=== PATIENT | male | born 1970 | race Caucasian/White ===

== ENCOUNTER 2018-05-31 01:29 | Inpatient (IN) | payer MEDICARE, MEDICAID ==
[~2018-05-31] VITALS: Ht 188 cm; Wt 113.9 kg
[2018-05-31] VITALS (24 sets, daily range): BP systolic 111–140; BP diastolic 70–97
[~2018-05-31 01:29] MED LIST: ASPIR 8181 MG PO; ASPIRIN EC81 M1 PO; ATIVAN1 M1 PO; AUGMENTIN 875-1 EACH PO; BACTROBAN CREAM30 G1; CARVEDILOL25 MG; CARVEDILOL25 MG PO; CELEXA20 MG PO; CRESTOR PO; CRESTOR10 MG PO; CYCLOBENZAPRINE5 MG PO; DOXYCYCLINE 10100 M1 PO; DOXYCYCLINE 10100 MG PO; GLUCOPHAGE1000 MG PO; GLUCOPHAGE500 MG PO; GLUCOTROL; GLUCOTROL10 MG PO; GLUCOTROL5 MG PO; HUMALOG100 UNIT/1; HUMALOG100 UNIT/1 SUBQ; HYDROCODONE-APA1 TA1 PO; JANUMET 50-1,01 EACH PO; KEFLEX500 MG PO; LANTUS SC; LANTUS SQ; LANTUS100 UNIT/M; LANTUS100 UNIT/M SUBQ; LASIX 40 MG TAB40 M2 PO; LEVAQUIN 500 M500 M2 PO; LEVITRA10 MG PO; LISINOPRIL PO; LISINOPRIL20 MG PO; LORTAB 7.5/5001 TA3 PO; METFORMIN PO; MUPIROCIN22 GM TOP; NOVOLOG100 UNIT/1 SQ; NOVOLOG100 UNIT/1 SUBQ; ONE TOUCH DELI1 EACH MC; OTHER MISCELL; PERCOCET 10-321 EAC1 PO; PERCOCET 5-3251 EACH PO; PLAVIX 75 MG TA75 M1 PO; POTASSIUM GLUC500 MG PO; PREDNISONE 10 M10 MG PO; SYMBICORT160 MCG/4. INH; UNICOMPLEX M TA1 TA1 PO
[2018-05-31] MEDS ORDERED: TOPROL XL25 MG (01:45)
[2018-05-31] MEDS ORDERED: MS CONTIN 30 MG30 MG (01:46)
[2018-05-31 02:09] LABS: ABSOLUTE EOSINOPHILS 0.3 thou/uL (0.0-0.7); ABSOLUTE LYMPHOCYTES 1.4 thou/uL (0.8-5.3); ABSOLUTE MONOCYTES 0.4 thou/uL (0.0-1.2); ABSOLUTE NEUTROPHILS 3.3 thou/uL (1.6-8.1); BASOPHILS 0.7 %; EOSINOPHILS 4.7 %; HEMATOCRIT 42.2 % (42.0-52.0); HEMOGLOBIN 13.6 gm/dL (14.0-18.0); LYMPHOCYTES 25.8 %; MCH 26.8 pg (26.0-34.0); MCHC 32.3 g/dL (28.0-37.0); MCV 83.1 fL (80.0-100.0); MONOCYTES 7.3 %; MPV 10.6 fl. (7.2-11.1); NUCLEATED RBCS 0 /100WBC; PLATELET COUNT* 129 thou/uL (150-400); POLYS 61.5 %; RBC 5.08 mil/uL (4.50-6.00); RDW-CV 14.4 % (10.5-14.5); WBC 5.4 thou/uL (4.0-11.0)
[2018-05-31 02:20] LABS: CALCIUM 8.4 mg/dL (8.5-10.1); CREATININE 1.1 mg/dL (0.6-1.3)
[2018-05-31 02:31] LABS: MAGNESIUM 1.8 mg/dL (1.8-2.4); TOTAL BILIRUBIN 0.4 mg/dL (<0.1-1.0); TOTAL PROTEIN 6.4 g/dL (6.4-8.2); TROPONIN-I LEVEL 0.08 ng/mL (<0.06)
[2018-05-31] MEDS ORDERED: NORCO 10-325 T1 EACH PO ×2 (04:34→04:37)
[2018-05-31] MEDS ORDERED: MS CONTIN 30 MG30 MG PO (04:38)
[2018-05-31 10:00] LABS: CALCIUM 8.2 mg/dL (8.5-10.1); CREATININE 1.1 mg/dL (0.6-1.3); POTASSIUM 3.9 mmol/L (3.5-5.1)
[2018-05-31 10:02] LABS: APTT 30.8 Seconds (25.0-31.3); INR 1.1; PROTIME 11.2 Seconds (9.20-11.50)
[2018-05-31 10:53] LABS: AMP/METHAMP Negative (Negative); BARBITURATES Negative (Negative); BENZODIAZEPINES Negative (Negative); COCAINE Negative (Negative); METHADONE Negative (Negative); OPIATES POSITIVE (Negative); PCP Negative (Negative); THC POSITIVE (Negative)
--- NOTE | 2018-05-31 12:16 | EKG ---
[place] [address] ELECTROCARDIOGRAM REPORT Name: DRAKE AMADOR Room: [address] ADM IN M.R.#: [id number] Admission: 05/31/18 Attend Phys: Christiano Ervin MD Discharge: Date of : 72 Report #: [id number] THIS REPORT FOR: //name// [facility] ED Test Date: 2018-05-31 Test Time: 01:37:37 Pat Name: DRAKE AMADOR Department: Room: [facility] Gender: M Butter Maker: GL : 1970 Requested By: Jessee Devlin Order Number: [id number] MD: Buddy Ribera Measurements Intervals [place] Rate: 88 P: 63 NV: 151 QRS: 57 QRSD: 106 T: 105 QT: 389 QTc: 471 Interpretive Statements Sinus rhythm Supraventricular bigeminy Probable left atrial enlargement Left ventricular hypertrophy Nonspecific T abnormalities, lateral leads Baseline wander in lead(s) V4 Compared to ECG 04/11/2015 11:49:17 Atrial premature complex(es) now present Left ventricular hypertrophy now present T-wave abnormality now present Electronically Signed On 05-31-2018 12:15:53 DRAFTING SUPERVISOR by Buddy Ribera [email or web address] <ELECTRONICALLY SIGNED> By: Buddy Ribera MD, FACC 05/31/18 1215 6 6 Buddy Ribera MD, FAC /EPI
--- NOTE | 2018-05-31 12:17 | EKG ---
[place] [address] ELECTROCARDIOGRAM REPORT Name: DRAKE AMADOR Room: [address] ADM IN M.R.#: [id number] Admission: 05/31/18 Attend Phys: Christiano Ervin MD Discharge: Date of : 72 Report #: [id number] THIS REPORT FOR: //name// [facility] ED Test Date: 2018-05-31 Test Time: 02:39:02 Pat Name: DRAKE AMADOR Department: Room: [address] Gender: M Interpretative Dancer: Dirk VILLA : 1970 Requested By: Jessee Devlin Order Number: [id number] Daniel MD: Buddy Ribera Measurements Intervals [place] Rate: 87 P: 10 MT: 145 QRS: 51 QRSD: 109 T: 111 QT: 386 QTc: 465 Interpretive Statements Sinus rhythm Atrial premature complexes Probable left ventricular hypertrophy Nonspecific T abnormalities, lateral leads Electronically Signed On 05-31-2018 12:16:53 MANAGER NIGHT by Buddy Ribera [email or web address] <ELECTRONICALLY SIGNED> By: Buddy Ribera MD, [facility] 05/31/18 1216 0239 0239 Buddy Ribera MD, FACC /EPI
[2018-06-01] VITALS (8 sets, daily range): BP systolic 118–134; BP diastolic 66–84
[2018-06-01 04:40] LABS: HEMATOCRIT 40.7 % (42.0-52.0); HEMOGLOBIN 13.3 gm/dL (14.0-18.0); MCH 27.1 pg (26.0-34.0); MCHC 32.7 g/dL (28.0-37.0); MCV 82.7 fL (80.0-100.0); MPV 10.5 fl. (7.2-11.1); RBC 4.92 mil/uL (4.50-6.00); RDW-CV 14.4 % (10.5-14.5); WBC 4.6 thou/uL (4.0-11.0)
[2018-06-01 05:10] LABS: ANION GAP 6 mmol/L (7-16); BUN 13 mg/dL (7-18); CALCIUM 8.3 mg/dL (8.5-10.1); CHLORIDE 104 mmol/L (98-107); CO2 31 mmol/L (21-32); CREATININE 1.2 mg/dL (0.6-1.3); GLUCOSE 112 mg/dL (70-99); POTASSIUM 3.8 mmol/L (3.5-5.1); SODIUM 141 mmol/L (136-145)
[2018-06-01 05:59] LABS: TROPONIN-I LEVEL 0.82 ng/mL (<0.06)
[2018-06-01 06:10] LABS: CHOLESTEROL 141 mg/dL (<200); HDL CHOLESTEROL 40 mg/dL (>40); LDL CHOLESTEROL 87 mg/dL (<100); SERUM ASSESSMENT CLEAR; TC:HDL 3.5 Ratio (Not establshd); TRIGLYCERIDE 72 mg/dL (<150); VLDL 14 mg/dL (<40)
--- NOTE | 2018-06-01 10:10 | EKG ---
[place] [address] ELECTROCARDIOGRAM REPORT Name: DRAKE AMADOR Room: [address] ADM IN M.R.#: [id number] Admission: 05/31/18 Attend Phys: Christiano Ervin MD Discharge: Date of : 72 Report #: [id number] THIS REPORT FOR: //name// [facility] Test Date: 2018-05-31 Test Time: 12:22:02 Pat Name: DRAKE AMADOR Department: Room: [address] Gender: M Cork Mixer: : 1970 Requested By: Buddy Ribera Order Number: [id number] Daniel MD: Buddy Ribera Measurements Intervals [place] Rate: 87 P: 70 NM: 147 QRS: 31 QRSD: 107 T: 110 QT: 388 QTc: 467 Interpretive Statements Sinus rhythm Atrial premature complexes Probable left ventricular hypertrophy Nonspecific T abnormalities, lateral leads Compared to ECG 05/31/2018 02:39:02 No significant changes Electronically Signed On 06-01-2018 10:10:06 MEDICAL STAFF COORDINATOR by Buddy Ribera [email or web address] <ELECTRONICALLY SIGNED> By: Buddy Ribera MD, [facility] 06/01/18 1010 1222 122 Buddy Ribera MD, [facility] /EPI
--- NOTE | 2018-06-01 10:20 | EKG ---
[place] [address] ELECTROCARDIOGRAM REPORT Name: DRAKE AMADOR Room: [address] ADM IN M.R.#: [id number] Admission: 05/31/18 Attend Phys: Christiano Ervin MD Discharge: Date of : 72 Report #: [id number] THIS REPORT FOR: //name// [facility] Test Date: 2018-06-01 Test Time: 03:42:38 Pat Name: DRAKE AMADOR Department: Room: [address] Gender: M Plastic Straightening Roll Operator: [facility] : 1970 Requested By: Buddy Ribera Order Number: [id number] Reading MD: Buddy Ribera Measurements Intervals [place] Rate: 82 P: 12 HI: 149 QRS: 34 QRSD: 104 T: 110 QT: 400 QTc: 468 Interpretive Statements Sinus rhythm Atrial premature complexes Probable left ventricular hypertrophy Abnormal inferior Q waves Nonspecific T abnormalities, lateral leads Compared to ECG 05/31/2018 02:39:02 T-wave abnormality still present Electronically Signed On 06-01-2018 10:20:50 SOLUTIONS CONSULTANT by Buddy Ribera [email or web address] <ELECTRONICALLY SIGNED> By: Buddy Ribera MD, [facility] 06/01/18 1020 0342 0342 Buddy Ribera MD, [facility] /EPI
[2018-06-01] MEDS ORDERED: PLAVIX 75 MG TA75 M1 PO (10:50)
[2018-06-01] MEDS ORDERED: NICOTINE TRANSD21 M1 TRANSDERM (10:53)
[2018-06-01] MEDS ORDERED: SPIRONOLACTONE25 M1 PO (10:55)
[2018-06-01] MEDS ORDERED: NITROGLYCERIN0.4 MG SUBLING (10:59)
[2018-06-01] MEDS ORDERED: LISINOPRIL20 MG PO (11:12)
[2018-06-01] MEDS ORDERED: CRESTOR10 MG PO ×2 (11:16→12:10)
[2018-06-01] MEDS ORDERED: TOPROL XL50 MG PO (12:10)
[2018-06-01] MEDS ORDERED: MS CONTIN 30 MG30 MG PO (12:12)
[2018-06-01] MEDS ORDERED: VENTOLIN HFA 1818 GM INH (12:17)
[2018-06-01] MEDS ORDERED: ATROVENT HFA14 GM INH (12:18)
[2018-06-01 23:06] LABS: GLYCOHEMOGLOBIN (HGB A1C) 7.1 % (4.8-5.6)
--- NOTE | 2018-06-03 15:08 | CARD ---
[address] [address] CARDIAC CATH REPORT Name: DRAKE AMADOR Room: [address]#: [id number] Admission: 05/31/18 Attend Phys: Christiano Ervin MD Discharge: 06/01/18 Date of : 72 Report #: [id number] THIS REPORT FOR: //name// APPROVED REPORT Study performed: 05/31/2018 10:33:29 Patient Details Patient Status: In-Patient Room #: The patient is a 48 year-old male Event Personnel Buddy Ribera, Aranza Alonso, Beny Spicer, Ang Watts Procedures Performed cath pci Indication Abnormal ECG, Unstable angina , Chest pain Risk Factors Coronary Artery Disease, Tobacco History () Previous Procedures/Diagnoses Previous CABGPrevious PCI Admission/Lab Medications/Medications given during procedure Glycoprotein IllbIlla Inhibitors, Heparin Unfract. Procedure Narrative The patient was brought electively to the Cardiac Catheterization Laboratory and was prepped and draped in a sterile manner. The right femoral was infiltrated with 1% Lidocaine subcutaneous anesthesia. A 6Fr Ultimum sheath was inserted into the right femoral artery. Coronary angiography was performed using coronary diagnostic catheters. The right coronary system was accessed and visualized with a Diagnostic catheter. The left coronary system was accessed and visualized with a Diagnostic catheter. The left ventricle was accessed and visualized with a Diagnostic catheter. Left ventricular/Aortic Valve gradient assessed via catheter pullback. Left ventriculogram was performed [facility] [address] [place] [address] CARDIAC CATH REPORT Name: DRAKE AMADOR Room: [address] IN [facility].#: [id number] Admission: 05/31/18 Attend Phys: Christiano Ervin MD Discharge: 06/01/18 Date of : 72 Report #: [id number] in WARD projection. An aortogram of the ascending aorta was performed. Pre-demployment femoral angiogram was performed . Closure device was deployed with a 6 Fr Angioseal. The patient tolerated the procedure well and there were no complications associated with the procedure. There was no hematoma. Aortic root injection showed no additional bypass grafts nor insufficiency. Intraoperative Conscious Sedation Fentanyl 25.0 mcg No Versed Given Fluoro Time: 9.1 minutes Dose: DAP [id number] cGycm2 2552 mGy Coronary Angiography The patient's coronary anatomy is co- dominant. [place] Artery Percent Stenosis AHZEL to lad visualized with a HAZEL catheter. HAZEL patent without stenosis. Patent free radial graft to the diagonal and sequential jump graft to the marginal branch visualized with a diagonstic right catheter. Patent SVG to the PDA visualized with a multipurpose catheter. Diagnostic Cath Left Main 0% stenosis LAD Occluded after diagonal branch Diagonal 1 80% proximal stenosis Circumflex distal 90% stenosis prior to small posterolateral branch OM2 patent stent noted Right Coronary mid rca chronically occluded R PDA 80% mid stenosis Left Ventriculography The left ventricular ejection fraction is estimated to be 20-25%. There is 1+ mitral insufficiency. Hemodynamics The aortic pressure is 128/87 mmHg with a mean of 103 mmHg. The left ventricular pressure [facility] [address] [place] [address] CARDIAC CATH REPORT Name: DRAKE AMADOR Room: [address] IN [facility].#: [id number] Admission: 05/31/18 Attend Phys: Christiano Ervin MD Discharge: 06/01/18 Date of : 72 Report #: [id number] is 123 mmHg with a mean of 16 mmHg. The left ventricular end diastolic pressure is 30 mmHg. There was no gradient across the aortic valve upon pullback. Pullback from the left ventricle to the aorta revealed no gradient across the aortic valve. PCI Technique Lesion Anticoagulation was achieved with Heparin. bolus of iv aggrastat given Percutaneous coronary intervention was performed on the circumflex artery atrioventricular groove continuation segment. The lesion stenosis prior to intervention was 90% with RADHA 3 flow. A xb4.0 Guide Catheter was used to engage the lm ostium. A bmw Interventional Guidewire was used to cross the lesion. BALLOON DILATION A Balloon catheter 2.5 x 15 mm was inserted and inflated up to 6atm for 10seconds. Repeat angiography revealed the following post-dilatation results: 50% stenosis. Additional Inflation: 8atm for 15seconds. STENT DEPLOYMENT A drug-eluting stent 2.25 x 30 mm Jenaro was inserted and inflated up to 6atm for 9seconds. Repeat angiography revealed the following post-stent deployment results: 0% stenosis. Additional Inflation: 7atm for 13seconds. Additional Inflation: 12atm for 8seconds. Final angiography reveals 0 % stenosis with RADHA 3 flow. Conclusion 1. 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 90% stenosis of the distal codominant circumflex 3. patent HAZEL graft to the lad 4. patent free radial graft to the disgonal artery with a jump graft to the marginal artery 5. patent SVG to the distal rca 6. patent stent noted in the marginal branch of the circumflex 7. LVEF 20-25% 8. successful placement of a drug eluting stent in [place] [address] CARDIAC CATH REPORT Name: DRAKE AMADOR Room: [address]#: [id number] Admission: 05/31/18 Attend Phys: Christiano Ervin MD Discharge: 06/01/18 Date of : 72 Report #: [id number] Recommendations consider ICD implant Medications Administered Clopidogrel <ELECTRONICALLY SIGNED> By: Buddy Ribera MD, [facility] 06/03/18 1508 1508 1508David Latasha Ribera MD, FACC /INF
--- NOTE | 2018-06-04 08:56 | CON ---
[address] [address] CONSULTATION Name: DRAKE AMADOR CHANTE Room: [address] IN M.R.#: [id number] Admission: 05/31/18 Attend Phys: Christiano Ervin MD Discharge: 06/01/18 Date of : 72 Report #: [id number] THIS REPORT FOR: //name// CC: [facility] physician/PCP Christiano Ervin HISTORY OF PRESENT ILLNESS: I was asked by Dr. Ervin to see this 48-year-old white male in Cardiology consultation for evaluation and treatment of chest pain. This man has a history of coronary artery disease. He had coronary artery bypass graft surgery in 2012 and a coronary stent in 2013. Dr. Swartz has cared for him in the past. He developed chest pain yesterday evening while having sex. He had 5 hours of chest pain that felt like a 1000 pounds on his chest. The pain was an 8 on a scale of 10. Pain was finally relieved when he got a nitroglycerin here. He went to the Emergency Room at [facility] before being transferred here. He has not had any pain since. His initial troponin here was 0.08. I believe it was 0.08 in [place] as well. It subsequently has trended downward with the second one being 0.06 and the third one being 0.07. He has had no recurrence of pain, although he says there is a mild grade 1 discomfort present. His EKG from 1:37 a.m. shows normal sinus rhythm with atrial premature beats. There is a left atrial enlargement, left ventricular hypertrophy and minor nonspecific T abnormalities. One from 2:39 a.m. is unchanged. There appears to be small Q-waves in the inferior leads as well, possibly an old inferior infarct. PAST MEDICAL HISTORY: Remarkable for gjb-wdnrtin-dfbpifvnm diabetes mellitus type 2, smoking and he still smokes. He has essential hypertension, hyperlipidemia. He has an ischemic cardiomyopathy with his last known ejection fraction according to our records by an echo from several years ago of 40-45%. He also has history of paroxysmal atrial fibrillation, was on amiodarone in the past but was taken off and apparently has not had recurrence. PAST SURGICAL HISTORY: He has had gastric sleeve surgery, triple hernia repair and back surgery. HOME MEDICATIONS: Include aspirin 81 mg daily, Flexeril 5 mg q.12 h., [place] 10/325 one q.6 h. p.r.n. pain, Toprol-XL 25 mg daily, morphine controlled release or MS Contin 30 mg p.o. t.i.d. He does use a TENS unit. He does have chronic dyspnea on exertion, orthopnea, PND and edema. There was radiation of his chest pain down his left arm to his elbow and there was associated shortness of breath, but there was no nausea, vomiting or diaphoresis. Coronary risk factors are as described above. There is a family history of coronary artery disease as well. He has not had renal disease. He says he does have blocked arteries in his neck. He says he has had a stroke. He does have pain in his legs when he walks, is not clear whether is a spinal claudication or vascular claudication. Does not have any open or nonhealing wounds. [address] [address] CONSULTATION Name: DRAKE AMADOR Room: [address] IN M.R.#: [id number] Admission: 05/31/18 Attend Phys: Christiano Ervin MD Discharge: 06/01/18 Date of : 72 Report #: [id number] FAMILY HISTORY: Remarkable for his mother, sisters, grandfather and father all having coronary artery disease. SOCIAL HISTORY: He is , does not drink. Smokes a pack a day. He is told no uncertain terms to stop smoking today. He is not employed apparently. REVIEW OF SYSTEMS: Positive for erectile dysfunction. He does use Viagra, but has not had one in 3 days, I believe. He has chronic cough, sputum production. Does have wheezing and asthma, palpitations, chest discomfort, shortness of breath with exercise, shortness of breath lying down and waking up short of breath. He has medical allergies, anxiety, arthritis, wears glasses, loss of vision, decreased hearing and wears dentures. Otherwise, his review of systems is negative for some 30 different complaints in 14 different system categories including central nervous system, general, respiratory, cardiovascular, endocrine, gastrointestinal, genitourinary, hematologic, lymphatic, allergic, immunologic, psychiatric, musculoskeletal, skin, eyes, ears, nose, mouth, and throat. Please see review of system form for details and negatives in review of systems. PHYSICAL EXAMINATION: GENERAL: He presents as a well-developed, well-nourished white male in no acute distress. VITAL SIGNS: Pulse was 82 and regular, blood pressure is 118/77, respirations 15 and regular and temperature is 98.3. HEENT: His head was atraumatic. Eyes clear. NECK: Supple. There is no jugular venous distention or hepatojugular reflux. Thyroid is not enlarged. There is no adenopathy. SKIN: Warm and dry. Mucous membranes are moist. LUNGS: Clear to auscultation and percussion. HEART: Revealed normal first and second heart sound. There is soft S4. There is no S3. There are no murmurs, rubs, thrills, heaves or gallops. PMI is not displaced. ABDOMEN: Soft, flat, nontender, no palpable masses, no organomegaly. EXTREMITIES: Reveal no cyanosis, clubbing or edema. NEUROLOGIC: The patient mentated normally, talked normally, moved all extremities normally. IMAGING: Note that his chest x-ray at [place] showed some congestive heart failure. He did get Lasix there and he has got a very small dose of Lasix here. He is currently not dyspneic. IMPRESSION: 1. Unstable angina. 2. Coronary artery disease. 3. Status post coronary artery bypass graft surgery x 6. [place] [id number] CONSULTATION Name: DRAKE AMADOR Room: [address]#: [id number] Admission: 05/31/18 Attend Phys: Christiano Ervin MD Discharge: 06/01/18 Date of : 72 Report #: [id number] 4. Status post coronary stent. 5. Ndyxf-kp-kxhpxtw congestive heart failure, systolic, that has improved. 6. Yuf-jtetfsy-bpvqkbojc diabetes mellitus type 2. 7. Smoking. 8. Essential hypertension. 9. Hyperlipidemia. 10. Ischemic cardiomyopathy. 11. Paroxysmal atrial fibrillation. 12. Currently in sinus rhythm. 13. Minimally elevated troponin. RECOMMENDATION: He should have cardiac catheterization today that will be done by Dr. Ribera shortly. Thank you very much for asking me to see the patient. If there are any questions, please feel free to contact me. <ELECTRONICALLY SIGNED> By: Jevon Zeng MD, FACC 06/04/18 [id number]. Odin Flynn MD, FACC /nt
== END 2018-06-01 13:25 | disposition home or self-care (01) | DRG 246 ==
LOC: M.ERS 01:29 → M.TBA-ER 02:50 → M.2W 02:50
PROVIDERS: Emergency Medicine Emergency Medical Services; Internal Medicine; ADMIT Family Medicine
PROC: B2151ZZ Fluoroscopy of Left Heart using Low Osmolar Contrast (ICD-10-PCS; principal; 2018-05-31)
PROC: 027034Z Dilation of Coronary Artery, One Artery with Drug-eluting Intraluminal Device, Percutaneous Approach (ICD-10-PCS; principal; 2018-05-31)
PROC: B2111ZZ Fluoroscopy of Multiple Coronary Arteries using Low Osmolar Contrast (ICD-10-PCS; principal; 2018-05-31)
PROC: 4A023N7 Measurement of Cardiac Sampling and Pressure, Left Heart, Percutaneous Approach (ICD-10-PCS; principal; 2018-05-31)
PROC: B2131ZZ Fluoroscopy of Multiple Coronary Artery Bypass Grafts using Low Osmolar Contrast (ICD-10-PCS; principal; 2018-05-31)
PROC: B2181ZZ Fluoroscopy of Left Internal Mammary Bypass Graft using Low Osmolar Contrast (ICD-10-PCS; principal; 2018-05-31)
DX: I21.4 Non-ST elevation (NSTEMI) myocardial infarction (principal); I50.23 Acute on chronic systolic (congestive) heart failure; I13.0 Hypertensive heart and chronic kidney disease with heart failure and stage 1 through stage 4 chronic kidney disease, or unspecified chronic kidney disease; I25.110 Atherosclerotic heart disease of native coronary artery with unstable angina pectoris; E78.5 Hyperlipidemia, unspecified; I25.5 Ischemic cardiomyopathy; N18.2 Chronic kidney disease, stage 2 (mild); E11.22 Type 2 diabetes mellitus with diabetic chronic kidney disease; J44.9 Chronic obstructive pulmonary disease, unspecified; I48.0 Paroxysmal atrial fibrillation; F17.210 Nicotine dependence, cigarettes, uncomplicated; G89.29 Other chronic pain; M54.9 Dorsalgia, unspecified; E66.01 Morbid (severe) obesity due to excess calories; Z68.32 Body mass index [BMI] 32.0-32.9, adult; Z87.81 Personal history of (healed) traumatic fracture; Z95.1 Presence of aortocoronary bypass graft; Z95.5 Presence of coronary angioplasty implant and graft; Z86.73 Personal history of transient ischemic attack (TIA), and cerebral infarction without residual deficits; Z79.82 Long term (current) use of aspirin; Z79.899 Other long term (current) drug therapy; Z88.5 Allergy status to narcotic agent; Z88.8 Allergy status to other drugs, medicaments and biological substances; Z82.49 Family history of ischemic heart disease and other diseases of the circulatory system

== ENCOUNTER 2018-06-02 01:48 | Inpatient (IN) | payer MEDICARE, MEDICAID ==
[~2018-06-02] VITALS: Ht 188 cm; Wt 119.7 kg
[2018-06-02] VITALS (30 sets, daily range): BP systolic 72–128; BP diastolic 39–81
[~2018-06-02 01:48] MED LIST changes: +ATROVENT HFA14 GM INH; +MS CONTIN 30 MG30 MG; +MS CONTIN 30 MG30 MG PO; +NICOTINE TRANSD21 M1 TRANSDERM; +NITROGLYCERIN0.4 MG SUBLING; +NORCO 10-325 T1 EACH PO; +SPIRONOLACTONE25 M1 PO; +TOPROL XL25 MG; +TOPROL XL50 MG PO; +VENTOLIN HFA 1818 GM INH
--- NOTE | 2018-06-02 05:01 | NUR ---
48 Y/O MALE ADMITTED TO TELEMETRY ROOM 222 AT 0300 WITH AN ADMITTING DIAGNOSIS OF PSEUDOANEURYSM. PT C/O SEVER PAIN TO RLE. PRN HYDROCODONE GIVEN WITH LITTLE RELIEF. VSS. PT TRACING SA ON MONITOR. PT ORIENTED TO ROOM. PT IS CURRENTLY NPO AND ON BEDREST. HOURLY ROUNDING FOR PT SAFETY. CLWR.
--- NOTE | 2018-06-02 06:53 | NUR ---
PT CONTINUES TO C/O 8-10/10 PAIN IN RLE WITH LITTLE PAIN RELIEF. PHYSICIAN NOTIFIED. awaiting response
--- NOTE | 2018-06-02 09:40 | NUR ---
PT REPORTS HE "FEELS LIKE IM AM GOING TO PASS OUT" PT COLD,PALE AND DIAPHORETIC. BP 72/41. PT FALLING ASLEEP DURING CONVERSATION. PT PLACED IN [place]. DR BROOKS AND DR EVER BOSS. EKG PERFORMED-NO ST ELEVATION. BG 189
--- NOTE | 2018-06-02 10:12 | NUR ---
WILL HOLD OFF ON PROCEDURE UNTIL PT MORE STABLE PER DR BROOKS
--- NOTE | 2018-06-02 10:25 | NUR ---
REPORT TO NEETU RN IN ICU. INFORMED OF ICU TRANSFER AND ROOM ASSIGNMENT
[2018-06-02 11:23] LABS: ABSOLUTE BASOPHILS 0.1 thou/uL (0.0-0.2); ABSOLUTE EOSINOPHILS 0.1 thou/uL (0.0-0.7); ABSOLUTE LYMPHOCYTES 1.7 thou/uL (0.8-5.3); ABSOLUTE MONOCYTES 0.9 thou/uL (0.0-1.2); ABSOLUTE NEUTROPHILS 10.5 thou/uL (1.6-8.1); BASOPHILS 0.7 %; EOSINOPHILS 0.7 %; HEMATOCRIT 31.4 % (42.0-52.0); MCH 27.1 pg (26.0-34.0); MCHC 32.5 g/dL (28.0-37.0); MCV 83.2 fL (80.0-100.0); MONOCYTES 6.5 %; MPV 11.3 fl. (7.2-11.1); NUCLEATED RBCS 0 /100WBC; PLATELET COUNT* 141 thou/uL (150-400); POLYS 79.1 %; RBC 3.78 mil/uL (4.50-6.00); WBC 13.3 thou/uL (4.0-11.0)
[2018-06-02 11:24] LABS: HEMOGLOBIN 10.2 gm/dL (14.0-18.0)
[2018-06-02 11:56] LABS: BE -1.2 mmol/L (-2 to +3); PCO2 36.7 mmHg (35.0-45.0); PO2 77.5 mmHg (75.0-100.0); pH 7.416 (7.340-7.450)
[2018-06-02 13:55] LABS: HEMATOCRIT 28.8 % (42.0-52.0); HEMOGLOBIN 9.5 gm/dL (14.0-18.0); MCH 27.4 pg (26.0-34.0); MCHC 33.1 g/dL (28.0-37.0); MCV 82.9 fL (80.0-100.0); MPV 10.7 fl. (7.2-11.1); RBC 3.48 mil/uL (4.50-6.00); RDW-CV 13.9 % (10.5-14.5); WBC 10.5 thou/uL (4.0-11.0)
[2018-06-02 14:05] LABS: CALCIUM 7.9 mg/dL (8.5-10.1); CREATININE 2.1 mg/dL (0.6-1.3); POTASSIUM 4.6 mmol/L (3.5-5.1)
[2018-06-02 14:19] LABS: TROPONIN-I LEVEL 0.37 ng/mL (<0.06)
[2018-06-02 14:29] LABS: ALBUMIN 2.4 g/dL (3.4-5.0); MAGNESIUM 1.9 mg/dL (1.8-2.4); TOTAL BILIRUBIN 0.4 mg/dL (<0.1-1.0); TOTAL PROTEIN 5.1 g/dL (6.4-8.2)
--- NOTE | 2018-06-02 15:04 | EKG ---
[place] [address] ELECTROCARDIOGRAM REPORT Name: DRAKE AMADOR Room: [address] ADM IN M.R.#: [id number] Admission: 06/02/18 Attend Phys: Son Hunter MD Discharge: Date of : 72 Report #: [id number] THIS REPORT FOR: //name// [facility] Test Date: 2018-06-02 Test Time: 09:33:04 Pat Name: DRAKE AMADOR Department: Room: [facility] Gender: M Mica Miner: THOWARD3 : 1970 Requested By: Christiano Ervin Order Number: [id number] Reading MD: Buddy Ribera Measurements Intervals [place] Rate: 86 P: 16 IN: 129 QRS: 35 QRSD: 99 T: 105 QT: 369 QTc: 442 Interpretive Statements Sinus rhythm Atrial premature complex Left ventricular hypertrophy Nonspecific T abnrm, anterolateral leads Baseline wander in lead(s) V3 Compared to ECG 06/01/2018 03:42:38 no change Electronically Signed On 06-02-2018 15:03:46 INSTRUCTIONAL PARAPROFESSIONAL by Buddy Ribera [email or web address] <ELECTRONICALLY SIGNED> By: Buddy Ribera MD, [facility] 06/02/18 1503 0933 0933 Buddy Ribera MD, [facility] /EPI
--- NOTE | 2018-06-02 16:55 | CON ---
[address] [address] CONSULTATION Name: DRAKE AMADOR Room: [address] IN M.R.#: [id number] Admission: 06/02/18 Attend Phys: Son Hunter MD Discharge: Date of : 72 Report #: [id number] THIS REPORT FOR: //name// CC: Son Hunter [facility] physician/PCP DATE OF SERVICE: 06/02/2018 TYPE OF REPORT: Cardiology consultation. HISTORY OF PRESENT ILLNESS: The patient is a 48-year-old single white male who was admitted last night complaining of right groin pain. The patient has an extensive past medical history. He had previous coronary artery bypass surgery at [facility] in 2012. A year later, he apparently required coronary stenting at [facility]. Recently, he has been followed by Cardiology in [place], [place]. Recently, he complained of intermittent chest tightness. After an episode of sexual intercourse, he had a prolonged episode of chest pain on the evening of May the . He went to the Emergency Room in [place], [place]. He was transferred to [place]. He had a borderline elevated troponin. He was seen in consultation by my partner, Dr. Flynn. He underwent a cardiac catheterization on May 31 from the right femoral artery. The left ventricle is dilated with ejection fraction of only 25%. He had coronary artery disease manifested by an occluded LAD and occluded right coronary artery. There is a patent HAZEL graft to the LAD. There is a patent free radial graft to the diagonal with a sequential jump graft to the circumflex. There was a vein graft to the distal right coronary artery. The circumflex was a codominant vessel. The distal circumflex had a 90% stenosis prior to the takeoff of the codominant posterolateral branch. I then placed a single drug-eluting stent in the distal circumflex. He was given heparin during the procedure. He was then loaded with Brilinta. Fortunately, he had no further chest pain, arrhythmias or heart failure. An Angio-Seal was placed. Prior to discharge, the patient is ambulating. He had no further cardiovascular complaints. He was discharged yesterday. His cousin apparently was driving him home to [place], [place]. They stopped in [place], [place] and went to the Emergency Room because of right groin discomfort. He had a coughing spell and noticed some swelling of his right groin. In the Emergency Room at [facility] in [place], [place], he underwent an ultrasound of the groin. 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 He was transferred back to [place] last night for further evaluation and treatment. PAST MEDICAL HISTORY: Significant for diabetes, hypertension, hyperlipidemia and cardiomyopathy. He has a history of atrial fibrillation, was on amiodarone in the past. He has had previous gastric sleeve surgery, hernia repair and back surgery. He has chronic back pain. HOME MEDICATIONS: Include aspirin, Flexeril, [place], Toprol-XL, MS [facility] and [facility] [address] [place] [address] CONSULTATION Name: DRAKE AMADOR Room: [address] IN [place].#: [id number] Admission: 06/02/18 Attend Phys: Son Hunter MD Discharge: Date of : 72 Report #: [id number] Crestor. He had previously been on lisinopril but ran out of it. He has also been on spironolactone in the past, but no longer was taking it. FAMILY HISTORY: Significant for heart disease. SOCIAL HISTORY: . He lives with a girlfriend. Smokes a pack of cigarettes a day. He is on disability. REVIEW OF SYSTEMS: He has had no history of stroke. He does have COPD. No history of peptic ulcer disease, liver disease or kidney disease. PHYSICAL EXAMINATION: GENERAL: Revealed a middle-aged male lying in bed and he appeared in no acute distress. VITAL SIGNS: He had a blood pressure 120/80, pulse is 80 and He is afebrile. HEENT: He is anicteric. Conjunctivae pink. Mucous members moist. CHEST: Clear to auscultation. CARDIOVASCULAR: Regular rate and rhythm. ABDOMEN: Obese. EXTREMITIES: Had no edema. SKIN: Warm and dry. NEUROLOGICAL: Nonfocal. IMPRESSION AND RECOMMENDATIONS: 1. Coronary artery disease. Recent stent to circumflex artery. The patient is on aspirin and Brilinta. 2. Cardiomyopathy. The patient is on an angiotensin-converting enzyme inhibitor and beta james and spironolactone. No evidence of congestive heart failure at this time. Because his cardiomyopathy, we would consider elective implantation of defibrillator. 3. Tobacco abuse. 4. Chronic obstructive pulmonary disease. 5. Chronic back pain. The patient has in place. 6. History of obesity. The patient had previous gastric sleeve surgery. 7. Diabetes. 8. Hyperlipidemia. The patient is on a statin drug. <ELECTRONICALLY SIGNED> By: Buddy Ribera MD, [facility] 06/02/18 1655 0805 0933David Latasha Ribera MD, FACC /nt
[2018-06-02 18:24] LABS: AMP/METHAMP Negative (Negative); BARBITURATES Negative (Negative); BENZODIAZEPINES POSITIVE (Negative); COCAINE Negative (Negative); METHADONE Negative (Negative); OPIATES POSITIVE (Negative); PCP Negative (Negative); THC POSITIVE (Negative)
[2018-06-03] VITALS (41 sets, daily range): BP systolic 90–128; BP diastolic 44–83
[2018-06-03 00:22] LABS: HEMATOCRIT 30.8 % (42.0-52.0); HEMOGLOBIN 10.4 gm/dL (14.0-18.0)
[2018-06-03 03:44] LABS: HEMATOCRIT 29.8 % (42.0-52.0); MCH 27.7 pg (26.0-34.0); MCHC 33.7 g/dL (28.0-37.0); MCV 82.2 fL (80.0-100.0); MPV 9.5 fl. (7.2-11.1); RBC 3.62 mil/uL (4.50-6.00); RDW-CV 14.2 % (10.5-14.5); WBC 10.7 thou/uL (4.0-11.0)
[2018-06-03 03:52] LABS: CALCIUM 7.6 mg/dL (8.5-10.1); POTASSIUM 4.2 mmol/L (3.5-5.1)
--- NOTE | 2018-06-03 06:00 | NUR ---
PATIENT COMPLAINING OF RIGHT GROIN AND BACK PAIN AT THIS TIME. FENTANYL ADMINISTERED, PATIENT POSITIONED IN BED. PARTIAL RELIEF. PATIENT VISIBLY UPSET, REPORTS HE CAN FEEL FLUIDS MOVING IN RIGHT GROIN AREA WHEN HE COUGHS. PATIENT COUGHING WITH GOOD EFFORT, GUARDING WITH PAIN WHEN HE COUGHS. H&H ORDERED AT THIS TIME. CENTRAL LINE DRESSING CHANGED. PATIENT DENIES NAUSEA.
[2018-06-03 06:13] LABS: HEMATOCRIT 30.1 % (42.0-52.0); HEMOGLOBIN 9.8 gm/dL (14.0-18.0)
--- NOTE | 2018-06-03 06:15 | NUR ---
NO SIGNS AND SYMPTOMS OF BLEEDING NOTED THROUGHOUT SHIFT. VITALS STABLE, HB>8 X3, MAP>65 THROUGH THE NIGHT, NO INCREASE IN SWELLING TO RIGHT GROIN AREA, NO INCREASE IN DISCOLORAION. PATIENT RESTED THROUGH MOST OF THE NIGHT. AROUND 0600, PATIENT STARTED COMPLAINING OF SWEATING AND PAIN TO RIGHT GROIN SITE WHEN HE COUGHS. VITALS WITHIN NORMAL RANGE, AFEBRILE, H&H IN PROGRESS. FENTANYL ADMINISTERED FOR COMFORT. PATIENT REPOSITIONED IN BED PER HIS REQUEST. WHITE DISCHARGE NOTED TO CATHETER SITE, PROVIDER NOTIFIED, STD PANEL IN PROGRESS. PATIENT REPORTS PAIN TO PENIS. WAS ABLE TO PRODUCE 750ML OF URINE, PATIENT RECEIVED 40MG OF LASIX BETWEEN THE TWO UNITS OF BLOOD. PARTIAL RELIEF FROM FLUSHING THE CATHETER AND REPOSITIONING THE STATLOCK.
--- NOTE | 2018-06-03 09:10 | NUR ---
DR LICEA AT BEDSIDE AT THIS TIME WITH ULTRASOUND TO ASSESS RIGHT GROIN, POSSIBLE THROMBIN INJECTION AT THIS TIME
--- NOTE | 2018-06-03 09:35 | NUR ---
NO INTERVENTION AT THIS TIME ON RIGHT GROIN SITE, APPEARS TO HAVE CLOTTED ON ITS OWN. WILL CONTINUE TO MONITOR,
--- NOTE | 2018-06-03 13:29 | 2DMMODE ---
[place] [address] 2 D/M-MODE ECHOCARDIOGRAM Name: DRAKE AMADOR CHANTE Room: [address] IN [facility]#: [id number] Admission: 06/02/18 Attend Phys: Son Hunter, Discharge: Date of : 72 Date of Service: 06/03/18 1328 Report #: [id number] THIS REPORT FOR: //name// APPROVED REPORT Study performed: 06/03/2018 10:23:37 EXAM: Comprehensive 2D, Doppler, and color-flow Echocardiogram Patient Location: In-Patient Room #: 003 Status: routine BSA: 2.41 HR: 86 bpm BP: 112/53 mmHg Rhythm: NSR Other Information Study Quality: Good Indications Congestive Heart Failure 2D Dimensions IVSd: 12.17 (7-11mm) LVOT Diam: 24.56 (18-24mm) LVDd: 60.58 mm PWd: 12.29 (7-11mm) Ascending Ao: 30.42 (22-36mm) LVDs: 53.33 (25-40mm) Aortic Root: 34.72 mm Volumes Left Atrial Volume (Systole) LA ESV Index: 44.50 mL/m2 Aortic Valve AoV Peak Gordon.: 1.38 m/s AO Peak Gr.: 7.56 mmHg LVOT Max P.30 mmHg AO Mean Gr.: 5.11 mmHg LVOT Mean P.44 mmHg LVOT Max V: 1.26 m/s AO V2 VTI: 24.00 cm LVOT Mean V: 0.86 m/s TAYO (VTI): 4.15 cm2 LVOT V1 VTI: 21.00 cm Mitral Valve E/A Ratio: 1.47 MV Decel. Time: 171.97 ms MV E Max Gordon.: 1.00 m/s MV PHT: 49.87 [place] [address] 2 D/M-MODE ECHOCARDIOGRAM Name: DRAKE AMADOR Room: [address] IN ..#: [id number] Admission: 06/02/18 Attend Phys: Son Hunter, Discharge: Date of : 72 Date of Service: 06/03/18 1328 Report #: [id number] MVA (PHT): 4.41 cm2 TDI E/Lateral E': 8.33 E/Medial E': 9.09 Medial E' Gordon.: 0.11 m/s Lateral E' Gordon.: 0.12 m/s Pulmonary Valve PV Peak Gordon.: 1.19 m/s PV Peak Gr.: 5.71 mmHg Tricuspid Valve RAP Estimate: 5.00 mmHg TR Peak Gr.: 21.46 mmHg RVSP: 26.00 mmHg PA Pressure: 26.00 mmHg Left Ventricle Left ventricle is mildly dilated. There is severe global hypokinesis of the left ventricle. Mild concentric left ventricular hypertrophy. Left ventricular systolic function is severely decreased. LVEF is 25-30%. The left ventricular diastolic function is normal. Right Ventricle The right ventricle is normal size. The right ventricular systolic function is normal. Atria Left atrium is moderately dilated. The right atrium size is normal. Aortic Valve The aortic valve is normal in structure. No aortic regurgitation is present. There is no aortic valvular stenosis. Mitral Valve The mitral valve is normal in structure. Trace mitral regurgitation. No evidence of mitral valve stenosis. Tricuspid Valve The tricuspid valve is normal in structure. Trace tricuspid regurgitation. No pulmonary hypertension[place] [address] 2 D/M-MODE ECHOCARDIOGRAM Name: DRAKE AMADOR Room: [address]#: [id number] Admission: 06/02/18 Attend Phys: Son Hunter, Discharge: Date of : 72 Date of Service: 06/03/18 1328 Report #: [id number] The pulmonary valve is normal in structure. There is no pulmonic valvular regurgitation. Great Vessels The aortic root is normal in size. IVC is normal in size and collapses >50% with inspiration. Pericardium There is no pericardial effusion. <Conclusion> Mild concentric left ventricular hypertrophy. LVEF is 25-30%. Left atrium is moderately dilated. <ELECTRONICALLY SIGNED> By: Buddy Ribera MD, FACC 06/03/18 1328 27 Buddy Ribera MD, FACC /INF
--- NOTE | 2018-06-03 19:47 | NUR ---
PATIENT HEMATOMA REMAINED SAME THIS SHIFT, PATIENT IS HESITANT TO BELELIVE THAT THE AREA HAS CLOTTED OFF ITSELF, REQUESTING THE DOCTOR ORDER ANOTHER ULTRASOUND IN THE AM. PERSISTANT COUGH THIS SHIFT, MEDICATIONS ORDERED PER JUL. FREQUENT PAIN, FENTANYL GIVEN PER JUL THIS SHIFT. WEANED OFF DOPAMINE AT 1400, BLOOD PRESSURES REMAIN ABOVE 100 SYSTOLIC AT THIS TIME. FAMILY UPDATED AND VISTIED, ALL QUESTIONS ANSWERED. BED IN LOWEST POSITION, CALL LIGHT IN REACH, CLERGY MEMBER IN PLACE.
[2018-06-04] VITALS (9 sets, daily range): BP systolic 112–142; BP diastolic 55–83
[2018-06-04 05:16] LABS: ABSOLUTE EOSINOPHILS 0.2 thou/uL (0.0-0.7); ABSOLUTE LYMPHOCYTES 1.5 thou/uL (0.8-5.3); ABSOLUTE MONOCYTES 0.7 thou/uL (0.0-1.2); ABSOLUTE NEUTROPHILS 5.2 thou/uL (1.6-8.1); BASOPHILS 0.3 %; EOSINOPHILS 2.4 %; HEMOGLOBIN 8.1 gm/dL (14.0-18.0); MCHC 33.7 g/dL (28.0-37.0); MCV 82.9 fL (80.0-100.0); MONOCYTES 8.9 %; MPV 10.3 fl. (7.2-11.1); NUCLEATED RBCS 0 /100WBC; PLATELET COUNT* 126 thou/uL (150-400); POLYS 68.4 %; RDW-CV 14.4 % (10.5-14.5); WBC 7.7 thou/uL (4.0-11.0)
[2018-06-04 05:22] LABS: CALCIUM 7.8 mg/dL (8.5-10.1); CREATININE 1.5 mg/dL (0.6-1.3); POTASSIUM 4.3 mmol/L (3.5-5.1)
--- NOTE | 2018-06-04 06:26 | NUR ---
patient slowly progressing. had pain to right leg through out the night. hematoma present no changes over night. pedis pulses 2+, capillary refill <3 pain level up to 10/10. lowest pain level was 5/10 with pain medication. pt intermittently slept. remains off pressors bp wnl. pt very anxious stated he is bleeding to his left leg as well. left leg assessed no changes or hematoma present. pt bed to lowest position. no voiced concerns at this time.
--- NOTE | 2018-06-04 11:57 | CON ---
[address] [address] CONSULTATION Name: DRAKE AMADOR CHANTE Room: [address] IN M.R.#: [id number] Admission: 06/02/18 Attend Phys: Son Hunter MD Discharge: Date of : 72 Report #: [id number] THIS REPORT FOR: //name// CC: Son Hunter [facility] physician/PCP DATE OF SERVICE: 06/03/2018 ATTENDING PHYSICIAN: Son Hunter M.D. REASON FOR EVALUATION: Positive blood culture. HISTORY OF PRESENT ILLNESS: Chart reviewed, patient examined. This is a 48-year-old man with a history of diabetes mellitus type 2 and hypertension who has had known atherosclerotic coronary artery disease and previous CABG who [facility] He was transferred and was found to have a non-ST elevation myocardial infarction with stenting on the . He returned yesterday with complaints of right groin pain. He was determined to have pseudoaneurysm. Evaluation suggested retroperitoneal hemorrhage as well. As part of the evaluation, blood cultures were collected and now 1 out of 2 with Gram-positive cocci. In addition to that, he has chronic back pain, which he attributes to his lumbar vertebra and he does complain of discharge via his meatus as well as productive cough of yellowish type phlegm. He is lucid at this point. Again, denies significant amount of pulmonary-related complaints. He says no further chest pain. Denies gastrointestinal issues, although he has been constipated. ALLERGIES: ALPRAZOLAM AND CODEINE. MEDICATIONS: Medicines include spironolactone, pantoprazole, atorvastatin, simethicone and ondansetron. PAST MEDICAL HISTORY: As described above, has diabetes mellitus type 2, hypertension, has known vasculopathy, previous aortocoronary bypass grafting, does have obstructive sleep apnea, chronic renal insufficiency, COPD, chronic back pain and severe depression. SOCIAL HISTORY: Smokes a pack a day. No illicit drug use. No ethanol. FAMILY HISTORY: Noncontributory. REVIEW OF SYSTEMS: Otherwise unremarkable with exception noted above in 10-point review of systems. PHYSICAL EXAMINATION: GENERAL: He appears chronically ill, older than his stated age, [place] [address] CONSULTATION Name: DRAKE AMADOR CHANTE Room: [address]#: [id number] Admission: 06/02/18 Attend Phys: Son Hunter MD Discharge: Date of : 72 Report #: [id number] moderate distress, appears undernourished. VITAL SIGNS: Temperature 99, pulse 89, respirations 13, blood pressures 80s to hundred and teens systolic. HEENT: Normocephalic. Extraocular muscles are intact. NECK: Supple. LUNGS: Generally diminished, few scattered crackles. HEART: Regular. I do not appreciate any murmur. ABDOMEN: He has got a contused area in the right inguinal site, it is quite tender and it is mildly distended. GENITOURINARY: Deferred. RECTAL: Deferred. LABORATORY DATA: MRSA PCR was negative. Echo showed EF of 25-30%. Valves without evidence of vegetation. Blood cultures, gram-positive cocci 1/2. Study shows right femoral artery pseudoaneurysm. Rapid HIV was negative. CTA of the pelvis confirms a tentative thigh, pelvic, extraperitoneal and abdominal retroperitoneal hematoma. Chest x-ray, pulmonary vascular within normal limits, no infiltrates, effusions or pneumothoraces. No pulmonary nodules. CT of abdomen and pelvis, large right-sided retroperitoneal hematoma. ASSESSMENT: Positive blood culture in the setting of recent cardiac catheterization complicated by pseudoaneurysm and hemorrhage with resultant retroperitoneal hematoma. At this point, it is difficult to ascertain whether this represents a true positive. I think it is certainly worthwhile to treat empirically with antimicrobials given the concern about seeding of the hematoma at this point. We will again await those results. In addition to that, there is no evidence of pneumonitis. We will try to obtain a sputum study. There are urethral studies in progress given his history. We will treat empirically at this point for urethritis. <ELECTRONICALLY SIGNED> By: Maximilian Navas MD 06/04/18 1157 [id number] Navas MD /nt
[2018-06-04 16:01] LABS: HEMATOCRIT 22.8 % (42.0-52.0); HEMOGLOBIN 7.6 gm/dL (14.0-18.0)
--- NOTE | 2018-06-04 16:18 | NUR ---
ASSUMED CARE OF PT AT THIS TIME. ORIENTED PT TO ROOM. PT HAS NO CONCERNS AT THIS TIME. CLWR. WCTM.
[2018-06-05] VITALS (7 sets, daily range): BP systolic 112–134; BP diastolic 61–80
[2018-06-05 05:56] LABS: CALCIUM 7.9 mg/dL (8.5-10.1); CREATININE 1.4 mg/dL (0.6-1.3); POTASSIUM 4.2 mmol/L (3.5-5.1)
[2018-06-05 06:31] LABS: ABSOLUTE EOSINOPHILS 0.4 thou/uL (0.0-0.7); ABSOLUTE LYMPHOCYTES 1.6 thou/uL (0.8-5.3); ABSOLUTE MONOCYTES 0.5 thou/uL (0.0-1.2); ABSOLUTE NEUTROPHILS 3.2 thou/uL (1.6-8.1); BASOPHILS 0.6 %; EOSINOPHILS 6.4 %; HEMOGLOBIN 7.3 gm/dL (14.0-18.0); LYMPHOCYTES 27.8 %; MCH 27.4 pg (26.0-34.0); MCV 83.1 fL (80.0-100.0); MONOCYTES 9.3 %; MPV 10.1 fl. (7.2-11.1); NUCLEATED RBCS 0 /100WBC; PLATELET COUNT* 139 thou/uL (150-400); POLYS 55.9 %; RBC 2.65 mil/uL (4.50-6.00); RDW-CV 14.7 % (10.5-14.5); WBC 5.8 thou/uL (4.0-11.0)
--- NOTE | 2018-06-05 06:51 | NUR ---
ASSUMED PT CARE AT 1930. ASSESSMENT COMPLETED CHARTED. PT AND GIRLFRIEND WERE FRUSTATED AND VENTED TO NURSE ABOUT THEIR SITUATION WITH THE PSUEDOANUERISM. C/O CHRONIC BACK PAIN AND LEG PAIN WITH RIGHT LEG SWELLING AND SIGNIFICANT BRUISING. UP AD MARIA C. ABLE TO MAKE NEEDS KNOWN. STATED THAT IF H&H KEEP GOING DOWN THAT THEY WILL HAVE TO GO SOMEWHERE ELSE BECAUSE PT STATES "i KNOW SOMETHING IS WRONG". PT TOOK A SHOWER LAST NIGHT AND HAS BEEN GIVEN PRN AND SCHEDULED PAIN MEDICATION PER P.O. WILL CONTINUE TO MONITOR.
--- NOTE | 2018-06-05 13:41 | NUR ---
INITIAL ASSESSMENT: CM SPK W/PT TO DISCCUSS HOUSEHOLD SITUATION, D/C PLANNING AND TO INFORM OF CM ROLE. PT IS A&OX4. NO DME. UNEMPLOYEED. RECEIVES DISABILITY. INDEPENDENT W/ALL ADLS. PT REQUESTED NEBULIZER FOR HOME USE. PT ALSO INQUIRED ABOUT OUTPATIENT CARDIAC REHAB & RN IN-CHARGE OF PT NOTIFIED. CM TO CONT FOLLOW/SUPPORT PT PRN.
--- NOTE | 2018-06-05 15:00 | NUR ---
TIME OUT CALLED. DR LICEA AND MIKHAIL BARRAGAN PA AT FOR THROMBIN INJECTION TO RIGHT FEMORAL ARTERY. CONSENT ON CHART
--- NOTE | 2018-06-05 16:35 | NUR ---
PT UP IN ROOM WITH STEADY GAIT THROUGHOUT SHIFT. PT REPORTS PAIN WHICH IS CONTROLLED WITH MEDS. DR LICEA AT BS THIS AFTERNOON FOR THROMBIN INJECTION. PT TOLERATED WELL. PT TOLERATING PO WELL. AT BS AND UPDATED ON PLAN OF CARE
[2018-06-05 23:42] LABS: HEMOGLOBIN 7.7 gm/dL (14.0-18.0)
[2018-06-06] VITALS: BP 130/80
[2018-06-06 04:00] VITALS: BP 115/70
[2018-06-06 06:15] LABS: HEMATOCRIT 22.5 % (42.0-52.0); HEMOGLOBIN 7.5 gm/dL (14.0-18.0)
--- NOTE | 2018-06-06 08:48 | NUR ---
PT RESTING IN BED, APPEARS ALERT O X 4, DENIES CHEST PAIN, sob, DOES c/o CHRONIC BACK PAIN, r GROIM SITE SOFT , INTACT, GENERALIZED ECCYMOSIS TO R GROIN
[2018-06-06 08:51] VITALS: BP 112/61
--- NOTE | 2018-06-06 09:54 | NUR ---
us Bridget NEWBERRY, COMPLTED, RESULTS CALLED TO DR CURTIS, ORDERS TO HOLD ASA AMD PLAVIX TODAY
[2018-06-06 12:00] VITALS: BP 110/67
[2018-06-06] MEDS ORDERED: NORCO 10-325 T1 EACH PO (12:45)
[2018-06-06 16:00] VITALS: BP 116/62
--- NOTE | 2018-06-06 17:37 | NUR ---
pt progressing towards goals, remains alert o x 4, denies chest pain, SOB , does C/O chronic back pain and R groin pain,. R groin cath site appears soft intact with generalized ecchymosis. US was completed , appears femoral artery patent, reviews by Vascular surgury. Vascular surgery signed off, Plavix and ASA held today per cardiology . Is on scheduled ,orphie po for chronic back apin, Rec hydrocodone x 2 today, for break through pain HGB 7.5 , Plan on re-checking H&H in am. pt up ad diane in room, denies feeling dizzy or lightheaded
[2018-06-06 20:00] VITALS: BP 152/72
[2018-06-07] VITALS: BP 111/65
--- NOTE | 2018-06-07 01:22 | NUR ---
ASSUMED PT CARE @ 1930. PT REQUESTED PRN PAIN MEDS WTH SCHEDULED PAIN MEDS. NOTIFIED PT PRN PAIN MED WOULD BE GIVEN IN AN HR IF NO PAIN RELIEF. PT FELL ASLEEP AFTER SCHEDULED PAIN MEDICATION- THEN WOKE UP APPROX AN HR LATER REQUESTING PRN PAIN MEDS. EFFECTIVE. PT'S GIRLFRIEND AND GIRLFRIEND'S DOG STAYING IN ROOM W PT. SANDWICH MAKER NOTIFIED YESTERDAY AND HAD PT SIGN PET VISITATION CONSENT FORM. PT OCCASIONALY BARKS WHEN STAFF ENTERS ROOM, BUT DOES NOT DISPLAY ANY PHYSICAL AGGRESSION. PT TRACING SR ON MONITOR. CALL LIGHT IN REACH. HOURLY ROUNDING FOR SAFETY.
[2018-06-07 04:00] VITALS: BP 102/44
[2018-06-07 05:20] LABS: ABSOLUTE EOSINOPHILS 0.3 thou/uL (0.0-0.7); ABSOLUTE LYMPHOCYTES 1.5 thou/uL (0.8-5.3); ABSOLUTE MONOCYTES 0.6 thou/uL (0.0-1.2); ABSOLUTE NEUTROPHILS 3.3 thou/uL (1.6-8.1); BASOPHILS 0.4 %; EOSINOPHILS 6.1 %; HEMATOCRIT 22.5 % (42.0-52.0); HEMOGLOBIN 7.6 gm/dL (14.0-18.0); LYMPHOCYTES 25.9 %; MCH 28.2 pg (26.0-34.0); MCHC 33.6 g/dL (28.0-37.0); MCV 84.1 fL (80.0-100.0); MONOCYTES 10.2 %; MPV 10.5 fl. (7.2-11.1); NUCLEATED RBCS 0 /100WBC; PLATELET COUNT* 150 thou/uL (150-400); POLYS 57.4 %; RBC 2.68 mil/uL (4.50-6.00); RDW-CV 14.7 % (10.5-14.5); WBC 5.7 thou/uL (4.0-11.0)
[2018-06-07 05:30] LABS: CREATININE 1.2 mg/dL (0.6-1.3); POTASSIUM 4.2 mmol/L (3.5-5.1)
[2018-06-07 10:43] VITALS: BP 114/66
--- NOTE | 2018-06-07 11:39 | NUR ---
Spoke with [facility]. Patient qualifies for cane with his insurance if he has not had a cane/walker/crutch in the last 5 years. I spoke with patient, and he has had a walker from Medicare in the last 5 years. I explained I could not guarantee payment, so he declined stating he'd be ok once he was home with his walker. Dr. Hagen notified.
[2018-06-07] MEDS ORDERED: KEFLEX500 M1 PO (12:02)
[2018-06-07] MEDS ORDERED: CLONAZEPAM 1 MG1 M1 PO (12:02)
--- NOTE | 2018-06-07 12:43 | NUR ---
PT GIVEN 2 RX ON DISCHARGE, PT VERBALIZED UNDERSTANDING OF DC, PT ASSISTED WITH A WHEELCHAIR, PT EXCORTED TO CAR WITH NURSING STAFF. BELONGINGS WITH PT
--- NOTE | 2018-06-09 15:04 | OP ---
[address] [address] OPERATIVE REPORT Name: DRAKE AMADOR CHANTE Room: [address] IN M.R.#: [id number] Admission: 06/02/18 Attend Phys: Son Hunter MD Discharge: 06/07/18 Date of : 72 Report #: [id number] THIS REPORT FOR: //name// CC: Son Hunter [facility] physician/PCP DATE OF SERVICE: 06/05/2018 PREOPERATIVE DIAGNOSIS: Right femoral artery pseudoaneurysm. POSTOPERATIVE DIAGNOSIS: Right femoral artery pseudoaneurysm. PROCEDURE: Ultrasound-guided thrombin injection of the right femoral pseudoaneurysm. SURGEON: Saqib Bunn DO. MOTOR VEHICLE REPRESENTATIVE: information technology professor. ANESTHESIA: 10 mL of 1% lidocaine anesthesia. FINDINGS: He had a small pseudoaneurysm emanating of the right deep femoral artery. This completely thrombosed after thrombin injection, had preservation of good triphasic waveforms throughout the SFA and good deep femoral artery waveform as well. CLINICAL HISTORY: The patient is a 48-year-old man who previously underwent heart catheterization outside facility and presented to [facility] with a right femoral pseudoaneurysm. He has had ongoing bleeding and pain in the right groin. Multiple duplex was performed, demonstrated persistence of the pseudoaneurysm, I proceeded with thrombin injection today. DETAILS OF PROCEDURE: After consent was obtained, the patient was positioned in his hospital bed. The right groin was prepped and draped in usual sterile fashion. A timeout was performed, identifying correct patient and procedure. Next, using the ultrasound guidance, the right femoral artery pseudoaneurysm was visualized and again appeared to be emanating of the deep femoral artery. The skin and subcutaneous tissues were anesthetized with local anesthetic and then using ultrasound guidance, spinal needle was positioned with the tip in the pseudoaneurysm. I then injected 500 units of thrombin into the pseudoaneurysm. There was complete thrombosis. He had preservation of flow through the SFA and the deep femoral arteries. Completion of imaging again demonstrated thrombosis of the pseudoaneurysm. At this point, all sharp [place] [address] OPERATIVE REPORT Name: DRAKE AMADOR Room: [address] IN M.R.#: [id number] Admission: 06/02/18 Attend Phys: Son Hunter MD Discharge: 06/07/18 Date of : 72 Report #: [id number] as correct. He tolerated the procedure well. Followup duplex will be obtained tomorrow for reevaluation. <ELECTRONICALLY SIGNED> By: Saqib Bunn DO 06/09/18 1504 [id number] Bunn DO /nt
== END 2018-06-07 12:36 | disposition home or self-care (01) | DRG 919 ==
LOC: M.2W 01:48 → M.ICU 03:10 → M.2W 03:10 → M.ICU 11:05 → M.2W 06-04 16:32
PROVIDERS: Family Medicine; Internal Medicine; Internal Medicine Cardiovascular Disease; Surgery Vascular Surgery; ADMIT Internal Medicine
PROC: 3E053GC Introduction of Other Therapeutic Substance into Peripheral Artery, Percutaneous Approach (ICD-10-PCS; principal; 2018-06-05)
DX: I97.610 Postprocedural hemorrhage of a circulatory system organ or structure following a cardiac catheterization (principal); I21.4 Non-ST elevation (NSTEMI) myocardial infarction; I42.9 Cardiomyopathy, unspecified; I50.22 Chronic systolic (congestive) heart failure; I13.0 Hypertensive heart and chronic kidney disease with heart failure and stage 1 through stage 4 chronic kidney disease, or unspecified chronic kidney disease; I72.8 Aneurysm of other specified arteries; I25.10 Atherosclerotic heart disease of native coronary artery without angina pectoris; J44.9 Chronic obstructive pulmonary disease, unspecified; E66.9 Obesity, unspecified; E11.22 Type 2 diabetes mellitus with diabetic chronic kidney disease; N18.2 Chronic kidney disease, stage 2 (mild); R97.20 Elevated prostate specific antigen [PSA]; G89.29 Other chronic pain; F32.9 Major depressive disorder, single episode, unspecified; G47.33 Obstructive sleep apnea (adult) (pediatric); M54.9 Dorsalgia, unspecified; F17.210 Nicotine dependence, cigarettes, uncomplicated; Y83.9 Surgical procedure, unspecified as the cause of abnormal reaction of the patient, or of later complication, without mention of misadventure at the time of the procedure; E78.5 Hyperlipidemia, unspecified; I48.91 Unspecified atrial fibrillation; Z95.1 Presence of aortocoronary bypass graft; Z79.82 Long term (current) use of aspirin; Z82.49 Family history of ischemic heart disease and other diseases of the circulatory system; Z79.899 Other long term (current) drug therapy; Z68.33 Body mass index [BMI] 33.0-33.9, adult; Z88.5 Allergy status to narcotic agent; Z86.73 Personal history of transient ischemic attack (TIA), and cerebral infarction without residual deficits; Z95.5 Presence of coronary angioplasty implant and graft; Y92.89 Other specified places as the place of occurrence of the external cause